=== PATIENT | female | born 1990 | race Caucasian/White ===

== ENCOUNTER 2021-05-07 09:15 | Emergency (ER) | payer OTHER ==
[~2021-05-07] VITALS: Ht 157.5 cm; Wt 68.0 kg
[2021-05-07] MEDS ORDERED: PEPCID AC20 MG (09:26)
== END 2021-05-07 12:35 | disposition home or self-care (01) ==
LOC: ER 09:15
DX: S93.492A Sprain of other ligament of left ankle, initial encounter (principal); M79.672 Pain in left foot; X50.0XXA Overexertion from strenuous movement or load, initial encounter; Y93.A9 Activity, other involving cardiorespiratory exercise; Y92.138 Other place on military base as the place of occurrence of the external cause; Y99.8 Other external cause status